=== PATIENT | female | born 1955 ===

== ENCOUNTER 2019-08-31 16:47 | Inpatient (IN) | payer BC ==
--- NOTE | 2019-08-31 17:04 | EDM.PDOC ---
ED HPI GENERAL MEDICAL PROBLEM - General Chief Complaint: Lower Extremity Injury/Pain Stated Complaint: EMS ARRIVAL Time Seen by Provider: 08/31/19 17:03 Source of Information: Reports: Patient History Limitations: Reports: No Limitations - History of Present Illness INITIAL COMMENTS - FREE TEXT/NARRATIVE: HISTORY AND PHYSICAL: History of present illness: Patient is a 64-year-old female presents to the ED via EMS for left hip injury. Patient states that she was in her garage cleaning when she turned and felt her left hip gave out on her. She states she fell to the ground but did not have any head or other injury. She has not been able to put any weight on her left leg. She states she's had 2 hip replacements on the left. Review of systems: As per history of present illness and below otherwise all systems reviewed and negative. Past medical history: As per history of present illness and as reviewed below otherwise noncontributory. Surgical history: As per history of present illness and as reviewed below otherwise noncontributory. Social history: No reported history of drug or alcohol abuse. Family history: As per history of present illness and as reviewed below otherwise noncontributory. Physical exam: General: Patient sitting comfortably in no acute distress and nontoxic appearing HEENT: Atraumatic, normocephalic, pupils reactive, negative for conjunctival pallor or scleral icterus, mucous membranes moist, throat clear, neck supple, nontender, trachea midline. No meningeal signs. Lungs: Clear to auscultation, breath sounds equal bilaterally, chest nontender. Heart: S1S2, regular, negative for clicks, rubs, or overt murmur. Abdomen: Soft, nondistended, nontender. Negative for masses or hepatosplenomegaly. Negative for costovertebral tenderness. No rigidity, rebound , guarding. Pelvis: Stable nontender. Genitourinary: Deferred. Rectal: Deferred. Extremities: Atraumatic, negative for cords or calf pain. Neurovascular unremarkable. Neuro: Awake, alert, oriented. Cranial nerves II through XII unremarkable. Cerebellum unremarkable. Motor and sensory unremarkable throughout. Exam nonfocal. Notes: Dr. Tanner to ED to reduce hip but was unsuccessful and patient will go to OR for closed reduction. See Dr. Tanner's note. Diagnostics: left hip x-ray Therapeutics: Prescriptions: Impression: Left hip dislocation Plan: Patient to OR for closed reduction with Dr. Tanner. Definitive disposition and diagnosis as appropriate pending reevaluation and review of above. Left Hip Pain Score (Numeric/FACES): 10 - Related Data Allergies Allergy/AdvReac Type Severity Reaction Status Date / Time cefdinir Allergy Hives Verified 08/31/19 17:03 Home Meds: Home Meds . [No Known Home Meds] 08/31/19 [History] Review of Systems - Review of Systems Review Of Systems: Comprehensive ROS is negative, except as noted in HPI. ED EXAM, GENERAL - Physical Exam Exam: See Below (see dictation) Course - Vital Signs Last Recorded V/S: Last Vital Signs Temp 98.8 F 08/31/19 17:00 Pulse 85 08/31/19 18:30 Resp 17 08/31/19 18:30 BP 148/65 H 08/31/19 18:30 Pulse Ox 97 08/31/19 18:30 - Orders/Labs/Meds Meds: Medications Discontinued Medications Generic Name Dose Route Start Last Admin Trade Name Monty PRN Reason Stop Dose Admin Fentanyl Confirm 08/31/19 19:05 Sublimaze Administered 08/31/19 19:06 Dose 100 mcg .ROUTE .STK-MED ONE Acetaminophen Confirm 08/31/19 19:06 Ofirmev Administered 08/31/19 19:07 Dose 100 mls @ as directed .ROUTE .STK-MED ONE Midazolam HCl Confirm 08/31/19 19:05 Versed 1 Mg/Ml Administered 08/31/19 19:06 Dose 2 mg .ROUTE .STK-MED ONE Ondansetron HCl Confirm 08/31/19 19:05 Zofran Administered 08/31/19 19:06 Dose 4 mg .ROUTE .STK-MED ONE Propofol Confirm 08/31/19 19:05 Diprivan 20 Ml Administered 08/31/19 19:06 Dose 400 mg .ROUTE .STK-MED ONE Departure - Departure Time of Disposition: 19:34 Disposition: Still A Patient 30 Condition: Good Clinical Impression: Hip dislocation, left - Discharge Information Forms: ED Department Discharge Sepsis Event Note - Evaluation Sepsis Screening Result: No Definite Risk - Focused Exam Vital Signs: Vital Signs Temp Pulse Resp BP Pulse Ox 08/31/19 18:30 85 17 148/65 H 97 08/31/19 18:00 89 16 158/89 H 97 08/31/19 17:30 80 18 154/69 H 99 08/31/19 17:00 98.8 F 87 20 156/67 H 99 Date Exam was Performed: 08/31/19 Time Exam was Performed: 19:33
--- NOTE | 2019-08-31 18:15 | CR ---
Pelvis and left hip: AP view of the pelvis was obtained as well as AP view left hip. Dislocated left hip prosthesis is seen. Prosthesis is dislocated superior to the acetabular cup. Severe joint space narrowing is seen within the right hip. Bony structures are osteopenic. No acute fracture is appreciated. Degenerative change is noted within the visualized lower lumbar spine. Impression: 1. Dislocated left hip prosthesis. 2. Other findings which are nonacute. Diagnostic code #3 This report was dictated in [place] Standard Time
[2019-08-31] MEDS ORDERED: Ondansetron 4 MG/2 ML SDV ONE (19:05)
[2019-08-31] MEDS ORDERED: fentaNYL 100 MCG/2 ML SDV ONE ×2 (19:05→19:52)
[2019-08-31] MEDS ORDERED: Propofol 200 MG/20 ML SDV ONE ×2 (19:05→19:51)
[2019-08-31] MEDS ORDERED: Midazolam 1 MG/ML 2 ML SDV ONE (19:05)
[2019-08-31] MEDS ORDERED: Sugammadex Sodium 200 MG/2 ML VIAL ONE (20:29)
[2019-08-31] MEDS ORDERED: Ketorolac 15 MG/ML SDV IVPUSH PRN (20:42)
[2019-08-31] MEDS ORDERED: HYDROmorphone 1 MG/ML Syringe IVPUSH ONE ×2 (20:48→20:58)
[2019-08-31] MEDS ORDERED: HYDROmorphone 2 MG/ML Syringe ONE (20:48)
[2019-08-31] MEDS ORDERED: hydrOXYzine Pamoate 25 MG Cap PO PRN (20:49)
--- NOTE | 2019-08-31 20:52 | PCM.PREANE ---
Preanesthetic Assessment - Procedure Proposed Procedure: Disloacted hip. Needs sedation for reduction. - Anesthesia/Transfusion/Family Hx Anesthesia History: Prior Anesthesia Without Reaction Family History of Anesthesia Reaction: No Transfusion History: No Prior Transfusion(s) Intubation History: Intubation other than for Surgery in past - Review of Systems General: No Symptoms Pulmonary: No Symptoms Cardiovascular: No Symptoms Gastrointestinal: No Symptoms Neurological: No Symptoms Other: Reports: Anxiety - Physical Assessment NPO Status Date: 08/31/19 NPO Status Time: 11:00 Vital Signs: Last Vital Signs Temp 37.1 C 08/31/19 17:00 Pulse 79 08/31/19 19:30 Resp 18 08/31/19 19:30 BP 158/86 H 08/31/19 19:30 Pulse Ox 100 08/31/19 19:30 Height: 1.7 m Weight: 68.039 kg ASA Class: 2E Mental Status: Alert & Oriented x3 Airway Class: Mallampati = 1 Dentition: Reports: Normal Dentition Thyro-Mental Finger Breadths: 3 Mouth Opening Finger Breadths: 3 ROM/Head Extension: Full Lungs: Clear to Auscultation Cardiovascular: Regular Rate - Allergies Allergies/Adverse Reactions: Allergies Allergy/AdvReac Type Severity Reaction Status Date / Time cefdinir Allergy Hives Verified 08/31/19 17:03 - Blood Blood Available: No Product(s) Available: None - Anesthesia Plan Pre-Op Medication Ordered: None - Acknowledgements Anesthesia Type Planned: MAC Alternatives and Risks of Anesthesia Discussed w Pt/Guardian: Yes Pt/Guardian Understands and Agrees with Anesthesia Plan: Yes Additional Comments: Discussed, ? answered, permit signed. Possible of GA also discussed. Accepts, wishes to proceed. PreAnesthesia Questionnaire Musculoskeletal History: Reports: None - Infectious Disease History Infectious Disease History: Reports: Chicken Pox, Measles - Past Surgical History Musculoskeletal Surgical History: Reports: Hip Replacement Other Musculoskeletal Surgeries/Procedures:: Left Hip Replacement x2 - SUBSTANCE USE Smoking Status *Q: Never Smoker Second Hand Smoke Exposure: No Recreational Drug Use History: No - HOME MEDS Home Medications: Home Meds . [No Known Home Meds] 08/31/19 [History] - CURRENT (IN HOUSE) MEDS Current Meds: Current Medications Acetaminophen (Tylenol) 650 mg PO Q6H PRN PRN Reason: Pain Famotidine (Pepcid) 40 mg PO DAILY DEEP Lactated Ringer's (Ringers, Lactated) 1,000 mls @ 100 mls/hr IV ASDIRECTED [facility] Ketorolac Tromethamine (Toradol) 15 mg IVPUSH Q6H PRN PRN Reason: Pain Stop: 09/01/19 05:00 Discontinued Medications Fentanyl (Sublimaze) Confirm Administered Dose 100 mcg .ROUTE .STK-MED ONE Stop: 08/31/19 19:06 Fentanyl (Sublimaze) Confirm Administered Dose 100 mcg .ROUTE .STK-MED ONE Stop: 08/31/19 19:53 Acetaminophen (Ofirmev) Confirm Administered Dose 100 mls @ as directed .ROUTE .STK-MED ONE Stop: 08/31/19 19:07 Midazolam HCl (Versed 1 Mg/Ml) Confirm Administered Dose 2 mg .ROUTE .STK-MED ONE Stop: 08/31/19 19:06 Ondansetron HCl (Zofran) Confirm Administered Dose 4 mg .ROUTE .STK-MED ONE Stop: 08/31/19 19:06 Propofol (Diprivan 20 Ml) Confirm Administered Dose 400 mg .ROUTE .STK-MED ONE Stop: 08/31/19 19:06 Propofol (Diprivan 20 Ml) Confirm Administered Dose 200 mg .ROUTE .STK-MED ONE Stop: 08/31/19 19:52 Sugammadex Sodium (Bridion) Confirm Administered Dose 200 mg .ROUTE .STK-MED ONE Stop: 08/31/19 20:30
--- NOTE | 2019-08-31 21:01 | PCM.POSTAN ---
POST ANESTHESIA ASSESSMENT - MENTAL STATUS Mental Status: Alert - VITAL SIGNS Vital Signs: Last Vital Signs Temp 36.6 C 08/31/19 20:38 Pulse 83 08/31/19 20:53 Resp 10 L 08/31/19 20:53 BP 145/81 H 08/31/19 20:53 Pulse Ox 97 08/31/19 20:53 - RESPIRATORY Respiratory Status: Respiratory Rate WNL - CARDIOVASCULAR CV Status: Pulse Rate WNL - GASTROINTESTINAL GI Status: No Symptoms - PAIN Pain Score: 2 (Some soreness. Received Dilaudid 1mg x2. Very helpful) - POST OP HYDRATION Hydration Status: Adequate & Stable (Doing well. Ready for discharge to floor.)
[2019-08-31 21:29] LABS: BLOOD UREA NITROGEN,BUN 11 mg/dL (7.0-18.0); CARBON DIOXIDE,CO2 25.1 mmol/L (21.0-32.0); CHLORIDE,CL 105 mmol/L (98-107); GLUCOSE RANDOM 99 mg/dL (74-106); POTASSIUM,K 4.6 mmol/L (3.5-5.1); SODIUM,NA 140 mmol/L (136-145)
[2019-08-31] MEDS: Lactated Ringers 1,000 ML IV SCH (21:29)
[2019-08-31] MEDS: Famotidine 20 MG Tab PO SCH (21:50)
[2019-08-31] MEDS: Ondansetron 4 MG/2 ML SDV IVPUSH PRN (23:06)
--- NOTE | 2019-09-01 06:59 | PCM48HPAN ---
Post Anesthesia Note - EVALUATION WITHIN 48HRS OF ANESTHETIC Vital Signs in Normal Range: Yes Patient Participated in Evaluation: Yes Respiratory Function Stable: Yes Airway Patent: Yes Cardiovascular Function Stable: Yes Hydration Status Stable: Yes Pain Control Satisfactory: Yes (Some soreness but doing well.) Vital Signs: Last Vital Signs Temp 36.2 C 09/01/19 05:02 Pulse 100 09/01/19 05:02 Resp 16 09/01/19 05:02 BP 131/72 09/01/19 05:02 Pulse Ox 95 09/01/19 05:02 - COMMENTS/OBSERVATIONS Free Text/Narrative:: Doing well. Awaiting next set.
[2019-09-01] MEDS: Lactated Ringers 1,000 ML IV SCH ×2 (08:10→18:09)
[2019-09-01] MEDS: Famotidine 20 MG Tab PO SCH (08:11)
[2019-09-01] MEDS: Ondansetron 4 MG/2 ML SDV IVPUSH PRN ×2 (08:11→18:08)
[2019-09-01] MEDS ORDERED: Rocuronium 100 MG/10 ML Syringe ONE (10:47)
[2019-09-01] MEDS ORDERED: Sugammadex Sodium 200 MG/2 ML VIAL ONE (10:48)
--- NOTE | 2019-09-01 13:16 | PCM.PREANE ---
Preanesthetic Assessment - Anesthesia/Transfusion/Family Hx Anesthesia History: Prior Anesthesia Without Reaction Family History of Anesthesia Reaction: No Transfusion History: Prior Transfusion Without Reaction Intubation History: Intubation other than for Surgery in past - Review of Systems General: No Symptoms Pulmonary: No Symptoms Cardiovascular: No Symptoms Gastrointestinal: No Symptoms Neurological: No Symptoms Other: Reports: None, Anxiety - Physical Assessment NPO Status Date: 08/31/19 NPO Status Time: 11:00 Vital Signs: Last Vital Signs Temp 98 F 09/01/19 07:55 Pulse 86 09/01/19 07:55 Resp 16 09/01/19 07:55 BP 133/78 09/01/19 07:55 Pulse Ox 96 09/01/19 07:55 Height: 5 ft 7 in Weight: 68.039 kg ASA Class: 1 Mental Status: Alert & Oriented x3 Dentition: Reports: Normal Dentition ROM/Head Extension: Full Lungs: Clear to Auscultation, Normal Respiratory Effort Cardiovascular: Regular Rate, Regular Rhythm - Lab Values: Laboratory Last Values Hgb 13.5 g/dL (12.0-16.0) 08/31/19 21:10 Hct 40.3 % (36.0-46.0) 08/31/19 21:10 Sodium 140 mmol/L (136-145) 08/31/19 21:10 Potassium 4.6 mmol/L (3.5-5.1) 08/31/19 21:10 Chloride 105 mmol/L (98-107) 08/31/19 21:10 Carbon Dioxide 25.1 mmol/L (21.0-32.0) 08/31/19 21:10 BUN 11 mg/dL (7.0-18.0) 08/31/19 21:10 Creatinine 0.7 mg/dL (0.6-1.0) 08/31/19 21:10 Est Cr Clr Drug Dosing 79.99 mL/min 08/31/19 21:10 Estimated GFR (MDRD) > 60.0 ml/min 08/31/19 21:10 Glucose 99 mg/dL (74-106) 08/31/19 21:10 Calcium 9.0 mg/dL (8.5-10.1) 08/31/19 21:10 Blood Type O POSITIVE 08/31/19 21:10 Antibody Screen NEGATIVE 08/31/19 21:10 - Allergies Allergies/Adverse Reactions: Allergies Allergy/AdvReac Type Severity Reaction Status Date / Time cefdinir Allergy Hives Verified 09/01/19 02:37 - Blood Blood Available: No Product(s) Available: None - Anesthesia Plan Pre-Op Medication Ordered: None - Acknowledgements Anesthesia Type Planned: General Anesthesia Pt an Appropriate Candidate for the Planned Anesthesia: Yes Alternatives and Risks of Anesthesia Discussed w Pt/Guardian: Yes Pt/Guardian Understands and Agrees with Anesthesia Plan: Yes Additional Comments: Scheduled for revision SEBASTIAN, unsuccessful attempts at reduction of hip dislocation last night. NPO PreAnesthesia Questionnaire Musculoskeletal History: Reports: None - Infectious Disease History Infectious Disease History: Reports: Chicken Pox, Measles - Past Surgical History Musculoskeletal Surgical History: Reports: Hip Replacement Other Musculoskeletal Surgeries/Procedures:: Left Hip Replacement x2 - SUBSTANCE USE Smoking Status *Q: Never Smoker Second Hand Smoke Exposure: No Recreational Drug Use History: No - HOME MEDS Home Medications: Home Meds . [No Known Home Meds] 08/31/19 [History] - CURRENT (IN HOUSE) MEDS Current Meds: Current Medications Acetaminophen (Tylenol) 650 mg PO Q6H PRN PRN Reason: Pain Famotidine (Pepcid) 40 mg PO DAILY [facility] Last Admin: 09/01/19 08:11 Dose: 40 mg Hydroxyzine Pamoate (Vistaril) 25 mg PO Q6H PRN PRN Reason: pain Lactated Ringer's (Ringers, Lactated) 1,000 mls @ 100 mls/hr IV ASDIRECTED [facility] Last Admin: 09/01/19 08:10 Dose: 100 mls/hr Ondansetron HCl (Zofran) 4 mg IVPUSH Q4H PRN PRN Reason: Nausea/Vomiting Last Admin: 09/01/19 08:11 Dose: 4 mg Discontinued Medications Fentanyl (Sublimaze) Confirm Administered Dose 100 mcg .ROUTE .STK-MED ONE Stop: 08/31/19 19:06 Fentanyl (Sublimaze) Confirm Administered Dose 100 mcg .ROUTE .STK-MED ONE Stop: 08/31/19 19:53 Hydromorphone HCl (Dilaudid) 1 mg IVPUSH ONETIME ONE Stop: 08/31/19 20:49 Last Admin: 08/31/19 21:00 Dose: 1 mg Hydromorphone HCl (Dilaudid) Confirm Administered Dose 2 mg .ROUTE .STK-MED ONE Stop: 08/31/19 20:49 Last Admin: 08/31/19 21:42 Dose: Not Given Hydromorphone HCl (Dilaudid) 1 mg IVPUSH ONETIME ONE Stop: 08/31/19 20:59 Last Admin: 08/31/19 20:49 Dose: 1 mg Acetaminophen (Ofirmev) Confirm Administered Dose 100 mls @ as directed .ROUTE .STK-MED ONE Stop: 08/31/19 19:07 Ketorolac Tromethamine (Toradol) 15 mg IVPUSH Q6H PRN PRN Reason: Pain Stop: 09/01/19 05:00 Midazolam HCl (Versed 1 Mg/Ml) Confirm Administered Dose 2 mg .ROUTE .STK-MED ONE Stop: 08/31/19 19:06 Ondansetron HCl (Zofran) Confirm Administered Dose 4 mg .ROUTE .STK-MED ONE Stop: 08/31/19 19:06 Propofol (Diprivan 20 Ml) Confirm Administered Dose 400 mg .ROUTE .STK-MED ONE Stop: 08/31/19 19:06 Propofol (Diprivan 20 Ml) Confirm Administered Dose 200 mg .ROUTE .STK-MED ONE Stop: 08/31/19 19:52 Rocuronium [place] (Zemuron) Confirm Administered Dose 100 mg .ROUTE .STK-MED ONE Stop: 09/01/19 10:48 Sugammadex Sodium (Bridion) Confirm Administered Dose 200 mg .ROUTE .STK-MED ONE Stop: 08/31/19 20:30 Sugammadex Sodium (Bridion) Confirm Administered Dose 200 mg .ROUTE .STK-MED ONE Stop: 09/01/19 10:49
--- NOTE | 2019-09-01 14:44 | CR ---
Chest: Portable AP view of the chest was obtained. Comparison: No prior chest x-ray. Heart size and mediastinum are within normal limits for portable technique. Lungs are clear with no acute parenchymal change. Slight scoliosis is noted within the spine. Impression: 1. Slight scoliosis. 2. Nothing acute is seen on portable chest x-ray. Diagnostic code #2 This report was dictated in [place] Standard Time
--- NOTE | 2019-09-01 14:46 | CR ---
Left hip: AP view of the left hip was obtained. Comparison: Prior left hip study of 08/31/19. Dislocated left hip prosthesis again noted. Slight degenerative change is noted within the spine. Degenerative change is partially is seen within the right hip. One screw within the acetabular cup shows evidence of fracturing which is hidden on prior study from the femoral head. Impression: 1. Dislocated left hip prosthesis. Fracture of one screw of the acetabular cup. 2. Partially visualized degenerative change. Diagnostic code #3 This report was dictated in [place] Standard Time
--- NOTE | 2019-09-01 14:48 | PCM.OPNOTE ---
- General Post-Op/Procedure Note Date of Surgery/Procedure: 08/31/19 Operative Procedure(s): attempted closed reduction left hip arthroplasty Pre Op Diagnosis: left hip arthroplasty posterior dislocation Post-Op Diagnosis: Same Anesthesia Technique: General LMA Primary Surgeon: Vahid Tanner Complications: unable to relocate Condition: Good Free Text/Narrative:: Intake & Output 08/31/19 09/01/19 09/01/19 22:59 06:59 14:59 Intake Total 1000 1409 Output Total 700 400 Balance 300 1009
--- NOTE | 2019-09-01 14:49 | PCM.OPNOTE ---
- General Post-Op/Procedure Note Date of Surgery/Procedure: 08/31/19 Operative Procedure(s): attempted closed reduction left hip arthroplasty Pre Op Diagnosis: left hip arthroplasty posterior dislocation Post-Op Diagnosis: Same Anesthesia Technique: MAC, Moderate Sedation Primary Surgeon: Vahid Tanner Anesthesia Provider: Kyree Marshall Complications: unable to relocate Condition: Good Free Text/Narrative:: Intake & Output 08/31/19 09/01/19 09/01/19 22:59 06:59 14:59 Intake Total 1000 1409 Output Total 700 400 Balance 300 1009
--- NOTE | 2019-09-01 14:52 | PCM.CONS ---
H&P History of Present Illness - General Date of Service: 08/31/19 Admit Problem/Dx: Admission Diagnosis/Problem Admission Diagnosis/Problem Hip joint painful on movement Source of Information: Patient, Family, Provider, RN History Limitations: Reports: No Limitations - History of Present Illness Onset of Symptoms: Reports: Today, Sudden Duration of Symptoms: Reports: Hour(s): Location: Reports: Lower Extremity, Left Quality: Reports: Ache, Burning, Dull, Pressure Severity: Moderate Improves with: Reports: Immobilization Worsens with: Reports: Movement Associated Symptoms: Reports: No Other Symptoms Left Hip Pain Score (Numeric/FACES): 10 - Related Data Allergies/Adverse Reactions: Allergies Allergy/AdvReac Type Severity Reaction Status Date / Time cefdinir Allergy Hives Verified 09/01/19 02:37 Home Medications: Home Meds . [No Known Home Meds] 08/31/19 [History] Past Medical History Musculoskeletal History: Reports: None - Infectious Disease History Infectious Disease History: Reports: Chicken Pox, Measles - Past Surgical History Musculoskeletal Surgical History: Reports: Hip Replacement Other Musculoskeletal Surgeries/Procedures:: Left Hip Replacement x2 Social & Family History - Family History Family Medical History: Noncontributory - Tobacco Use Smoking Status *Q: Never Smoker Second Hand Smoke Exposure: No - Caffeine Use Caffeine Use: Reports: None - Recreational Drug Use Recreational Drug Use: No H&P Review of Systems - Review of Systems: Review Of Systems: See Below General: Reports: No Symptoms HEENT: Reports: No Symptoms Pulmonary: Reports: No Symptoms Cardiovascular: Reports: No Symptoms Gastrointestinal: Reports: No Symptoms Genitourinary: Reports: No Symptoms Musculoskeletal: Reports: Leg Pain, Joint Pain, Joint Swelling Skin: Reports: No Symptoms Psychiatric: Reports: No Symptoms Neurological: Reports: No Symptoms Hematologic/Lymphatic: Reports: No Symptoms Immunologic: Reports: No Symptoms Exam - Exam Exam: See Below - Vital Signs Vital Signs: Last Vital Signs Temp 98.3 C H 09/01/19 13:00 Pulse 83 09/01/19 13:00 Resp 16 09/01/19 13:00 BP 174/81 H 09/01/19 13:00 Pulse Ox 96 09/01/19 13:00 Weight: 68.039 kg - Exam General: Alert, Oriented, Cooperative, Moderate Distress HEENT: EOMI, Hearing Intact, Mucosa Moist & [place], Pupils Equal, Pupils Reactive Neck: Supple, Trachea Midline Lungs: Normal Respiratory Effort GI/Abdominal Exam: No Distention Peripheral Pulses: 2+: Dorsalis Pedis (L), Dorsalis Pedis (R) Skin: Warm, Dry, Intact Neurological: Cranial Nerves Intact, Reflexes Equal Bilateral Neuro Extensive - Mental Status: Alert, Oriented x3, Normal Mood/Affect, Normal Cognition, Memory Intact Psychiatric: Alert, Normal Affect, Normal Mood - Patient Data Lab Results Last 24 hrs: Laboratory Results - last 24 hr 08/31/19 08/31/19 08/31/19 Range/Units 21:10 21:10 21:10 Hgb 13.5 (12.0-16.0) g/dL Hct 40.3 (36.0-46.0) % Sodium 140 (136-145) mmol/L Potassium 4.6 (3.5-5.1) mmol/L Chloride 105 (98-107) mmol/L Carbon Dioxide 25.1 (21.0-32.0) mmol/L BUN 11 (7.0-18.0) mg/dL Creatinine 0.7 (0.6-1.0) mg/dL Est Cr Clr Drug Dosing 79.99 mL/min Estimated GFR (MDRD) > 60.0 ml/min Glucose 99 (74-106) mg/dL Calcium 9.0 (8.5-10.1) mg/dL Blood Type O POSITIVE Antibody Screen NEGATIVE Result Diagrams: 08/31/19 21:10 08/31/19 21:10 Sepsis Event Note - Evaluation Sepsis Screening Result: No Definite Risk - Focused Exam Vital Signs: Vital Signs Temp Pulse Resp BP Pulse Ox 09/01/19 13:00 98.3 C H 83 16 174/81 H 96 09/01/19 07:55 36.6 C 86 16 133/78 96 09/01/19 05:02 36.2 C 100 16 131/72 95 Date Exam was Performed: 09/01/19 Time Exam was Performed: 14:49 Consult PN Assessment/Plan POD#: 0 (1) Hip dislocation, left SNOMED Code(s): 486577208 Code(s): S73.005A - UNSPECIFIED DISLOCATION OF LEFT HIP, INITIAL ENCOUNTER Current Visit: Yes Problem List Initiated/Reviewed/Updated: Yes My Orders Last 24 Hours: My Active Orders 08/31/19 20:42 Neurovascular Check [RC] Q4HR Acetaminophen [Tylenol] 650 mg PO Q6H PRN Code Status [Resuscitation Status] Routine 08/31/19 20:43 Bedrest [RC] ASDIRECTED RT Incentive Spirometry [RC] Q1HWA Ice Therapy [OM.PC] Routine Sequential Compression Device [OM.PC] Routine 08/31/19 20:44 Antiembolic Devices [RC] PER UNIT ROUTINE Cooling Warming Measures [RC] ASDIRECTED 08/31/19 20:45 EKG 12 Lead [EKG Documentation Completion] [RC] ROUTINE Famotidine [Pepcid] 40 mg PO DAILY Lactated Ringers [Ringers, Lactated] 1,000 ml IV ASDIRECTED 08/31/19 20:49 hydrOXYzine pamoate [Vistaril] 25 mg PO Q6H PRN 08/31/19 20:57 Admission Status [Patient Status] [ADT] Routine 08/31/19 22:57 Ondansetron [Zofran] 4 mg IVPUSH Q4H PRN 08/31/19 Dinner Regular Diet [DIET] 09/01/19 20:45 HEMOGLOBIN/HEMATOCRIT,HH [HEME] DAILY 09/01/19 Breakfast NPO [Nothing Per Oral Diet] [DIET] Plan: 64 yo female s/p turning in garage felt hip dislocate. 2nd revision in 2007. no hx of dislocation. neuro intact. attempted to reduce in ER but unable to. attempted to reduce in OR but unable to.
[2019-09-01] MEDS ORDERED: Clindamycin Phosphate in D5W 900 MG in Premix Bag 1 BAG IV SCH ×2 (16:00)
[2019-09-01] MEDS: traMADol 50 MG Tab PO PRN (18:08)
[2019-09-01] MEDS ORDERED: HYDROmorphone 1 MG/ML Syringe IVPUSH ONE (19:27)
[2019-09-01] MEDS ORDERED: Diazepam 5 MG Tab PO ONE (19:28)
[2019-09-02] MEDS: traMADol 50 MG Tab PO PRN ×2 (00:05→04:18)
[2019-09-02] MEDS: Lactated Ringers 1,000 ML IV SCH ×2 (04:14→15:04)
[2019-09-02] MEDS: diazePAM 5 MG/ML MDV IVPUSH PRN ×2 (09:25→14:03)
[2019-09-02] MEDS: Ondansetron 4 MG/2 ML SDV IVPUSH PRN (09:26)
[2019-09-02] MEDS: Famotidine 20 MG Tab PO SCH (09:38)
[2019-09-02] MEDS ORDERED: Midazolam 1 MG/ML 2 ML SDV ONE (13:44)
[2019-09-02] MEDS ORDERED: Propofol 200 MG/20 ML SDV ONE (13:44)
[2019-09-02] MEDS ORDERED: Rocuronium 100 MG/10 ML Syringe ONE (13:44)
[2019-09-02] MEDS ORDERED: Lidocaine 2% 5 ML SDV ONE (13:44)
[2019-09-02] MEDS ORDERED: fentaNYL 250 MCG/5 ML SDV ONE (13:45)
[2019-09-02] MEDS ORDERED: Sugammadex Sodium 200 MG/2 ML VIAL ONE (13:56)
[2019-09-02] MEDS ORDERED: Clindamycin Phosphate in D5W 900 MG in Premix Bag 1 BAG IV SCH ×2 (14:00)
[2019-09-02] MEDS ORDERED: Phenylephrine/Normal Saline 100 MCG/ML 10 ML Syringe ONE (16:48)
[2019-09-02] MEDS ORDERED: Bupivacaine 0.5%/EPINEPHrine 1:200,000 10 ML SDV ONE (17:00)
[2019-09-02] MEDS ORDERED: Vancomycin 1 GM SDV ONE ×2 (17:01→17:08)
[2019-09-02] MEDS ORDERED: Ondansetron 4 MG/2 ML SDV ONE (17:25)
[2019-09-02] MEDS ORDERED: Dexamethasone 4 MG/ML 5 ML MDV ONE (17:25)
[2019-09-02] MEDS ORDERED: 50% Dextrose in Water 50 ML Syringe IVPUSH PRN (17:50)
[2019-09-02] MEDS ORDERED: EPINEPHrine 1:10,000 1 MG/10 ML Syringe IVPUSH PRN (17:50)
[2019-09-02] MEDS ORDERED: Albuterol 0.083% 2.5 MG/3 ML Neb Soln NEB PRN (17:50)
[2019-09-02] MEDS ORDERED: Naloxone 0.4 MG/ML Syringe IVPUSH PRN (17:50)
[2019-09-02] MEDS ORDERED: Atropine 0.1 MG/ML 10 ML Syringe IVPUSH PRN ×2 (17:50)
[2019-09-02] MEDS ORDERED: fentaNYL 100 MCG/2 ML SDV IVPUSH PRN (17:50)
[2019-09-02] MEDS ORDERED: HYDROmorphone 2 MG/ML Syringe IVPUSH PRN (18:12)
--- NOTE | 2019-09-02 18:21 | PCM.OPNOTE ---
- General Post-Op/Procedure Note Date of Surgery/Procedure: 09/02/19 Operative Procedure(s): open relocation left total hip arthroplasty Pre Op Diagnosis: left closed dislocated total hip arthroplasty Post-Op Diagnosis: Same Anesthesia Technique: General ET Tube Primary Surgeon: Vahid Tanner Line Welder: Blanka Miranda EBL in mLs: 75 Complications: None Condition: Good Free Text/Narrative:: Intake & Output 09/02/19 09/02/19 09/02/19 06:59 14:59 22:59 Intake Total 1342 Output Total 1750 Balance -408
[2019-09-02] MEDS ORDERED: Meperidine PF 25 MG/ML Syringe IVPUSH ONE (18:55)
--- NOTE | 2019-09-02 19:06 | CR ---
Left hip: Single AP view of the left hip was obtained. Comparison: Prior left hip study of 09/01/19. Previous dislocation has been reduced. Components are aligned. Skin augustus are present. Soft tissue air is noted from the surgical procedure. Degenerative change is partially seen within the right hip. Impression: 1. Previous hip dislocation has been reduced. 2. Surgical change as noted above which is incidental. 3. Degenerative change within the right hip. Diagnostic code #2 This report was dictated in [place] Standard Time
--- NOTE | 2019-09-02 19:10 | PCM.POSTAN ---
POST ANESTHESIA ASSESSMENT - MENTAL STATUS Mental Status: Alert, Oriented - VITAL SIGNS Vital Signs: Last Vital Signs Temp 37.1 C 09/02/19 12:00 Pulse 99 09/02/19 18:59 Resp 15 09/02/19 18:59 BP 136/71 09/02/19 18:59 Pulse Ox 99 09/02/19 18:59 - RESPIRATORY Respiratory Status: Respiratory Rate WNL, Airway Patent, O2 Saturation Stable - CARDIOVASCULAR CV Status: Pulse Rate WNL, Blood Pressure Stable - GASTROINTESTINAL GI Status: No Symptoms - PAIN Pain Score: 0 - POST OP HYDRATION Hydration Status: Adequate & Stable (Doing well. Ready for discharge to floor.)
[2019-09-02] MEDS: Acetaminophen/oxyCODONE 325-10 MG Tab PO PRN (20:07)
--- NOTE | 2019-09-03 00:46 | OR ---
SURGEON: Vahid Tanner DATE OF PROCEDURE: 09/02/2019 PREOPERATIVE DIAGNOSES: Closed left hip total arthroplasty, posterior dislocation. POSTOPERATIVE DIAGNOSES: Closed left hip total arthroplasty, posterior dislocation. PROCEDURE: Open left total hip arthroplasty relocation. PRIMARY SURGEON: Vahid Tanner DO COMPUTER COMPOSITOR: IMAN Cárdenas ROLE OF COMPUTER COMPOSITOR: Nurse practitioner, IMAN Cárdenas, played an essential role in assisting in this case, helping to position the patient, retract structures as needed, as well as suturing and cutting sutures as indicated. Her presence improved patient's safety and decreased operative time. ANESTHESIA: General endotracheal intubation. FLUID: Lactated Ringer solution. ESTIMATED BLOOD LOSS: 75 mL. COMPLICATION: None. SPECIMEN: None. DISCHARGE DISPOSITION: Stable to PACU. HISTORY AND INDICATION FOR THE PROCEDURE: The patient was seen preoperatively in the ER in the hospital floor. We had tried to reduce the implant both in the ER and the OR with conscious sedation and then conscious sedation with the patient paralyzed both failed. We waited 2 days to perform the procedure in order to get components and in case any of these were loose. Risks and goals of the procedure explained to the patient. Informed consent was obtained. DETAILS OF PROCEDURE: The patient was seen preoperatively in the hospital floor. The operative site was marked. She was brought to the operative suite by Anesthesia staff, where general anesthesia was administered. The patient was paralyzed. I again tried to relocate the hip, but was unable to. We then positioned the patient in the right lateral recumbent position on a pegboard. An axillary roll was placed. All extremities were found to be well padded. Her left lower extremity was then prepped and draped in a sterile manner. Time-out was called after identifying the correct patient, the correct procedure, the correct site, and that antibiotics had been given within appropriate time. An incision was made about 5 cm proximal to the greater trochanter and then carried distally about 15 cm. Bleeding was controlled with Bovie electrocautery. This was carried down to the deep fascia down to the IT band. I used Gelpis for retraction. At this point, I incised the IT band with a knife and then used a Charnley for retraction. I then went through the gluteus medius and gluteus minimus and capsule. However, this was very far lateral on the femur because of the dislocation, which had internally rotated the femur. After that accomplished, I was then able to hook the femur. We tried relocating it couple of times. However, I was then able to relocate it. I then incised through part of the inferior acetabular labrum and then incised through part of the anterior and superior capsules and removed part of the capsule superiorly for the relocation. Then, using a bone hook and a pusher with traction, external rotation, and then internal rotation, I was able to relocate the hip. We then copiously irrigated with Betadine infused irrigation and then closed the capsule and gluteus minimus and gluteus coretta with #5 Ethibond as tightly as possible. I did take some drill holes through the greater trochanter in order to secure the Ethibond. I did apply a small amount of vancomycin powder in the joint. We then copiously irrigated with saline again including pulse lavage and then closed the IT band with 2 [id number] #5 Ethibond sutures followed by a #1 Stratafix in a running manner as watertight as possible. We then copiously irrigated with saline again, injected our local anesthetic, and then my assist closed subcutaneously with #1 Stratafix followed by skin augustus followed by Betadine-soaked Adaptic, fluffs, and a Medipore tape. The patient was then taken down from the pegboard into a supine position, placed into a knee immobilizer, and then transferred to her hospital bed in stable condition. She was then transferred to the PACU in stable condition. [id number] / MODL /[id number]
[2019-09-03] MEDS: Lactated Ringers 1,000 ML IV SCH (01:18)
[2019-09-03] MEDS: traMADol 50 MG Tab PO PRN (01:18)
--- NOTE | 2019-09-03 07:50 | PCM48HPAN ---
Post Anesthesia Note - EVALUATION WITHIN 48HRS OF ANESTHETIC Vital Signs in Normal Range: Yes Patient Participated in Evaluation: Yes Respiratory Function Stable: Yes Airway Patent: Yes Cardiovascular Function Stable: Yes Hydration Status Stable: Yes Pain Control Satisfactory: Yes Nausea and Vomiting Control Satisfactory: Yes Mental Status Recovered: Yes Vital Signs: Last Vital Signs Temp 36.4 C 09/03/19 03:28 Pulse 93 09/03/19 03:28 Resp 17 09/03/19 03:28 BP 121/62 09/03/19 03:28 Pulse Ox 97 09/03/19 03:28
[2019-09-03] MEDS: Famotidine 20 MG Tab PO SCH (08:43)
[2019-09-03] MEDS: Aspirin 325 MG Tab.EC PO SCH (08:43)
[2019-09-03] MEDS: Clindamycin Phosphate in D5W 300 MG in Premix Bag 1 BAG IV SCH ×4 (10:29→19:15)
[2019-09-03] MEDS: Acetaminophen/oxyCODONE 325-10 MG Tab PO PRN ×2 (12:39→19:15)
[2019-09-03] MEDS ORDERED: Sodium Chloride 0.9% 2.5 ML Syringe FLUSH PRN (14:41)
[2019-09-03] MEDS ORDERED: Sodium Chloride 0.9% 10 ML Syringe FLUSH PRN (14:41)
[2019-09-04] MEDS: Clindamycin Phosphate in D5W 300 MG in Premix Bag 1 BAG IV SCH ×6 (03:14→18:30)
[2019-09-04] MEDS: Acetaminophen 325 MG Tab PO PRN ×2 (03:56→23:15)
--- NOTE | 2019-09-04 08:54 | PCM.PN ---
- General Info Date of Service: 09/04/19 Admission Dx/Problem (Free Text): Admission Diagnosis/Problem Admission Diagnosis/Problem Hip joint painful on movement Functional Status: Reports: Pain Controlled, Tolerating Diet, Ambulating, Urinating, Incentive Spirometry - Review of Systems General: Reports: No Symptoms HEENT: Reports: No Symptoms Pulmonary: Reports: No Symptoms Cardiovascular: Reports: No Symptoms Gastrointestinal: Reports: No Symptoms Genitourinary: Reports: No Symptoms Musculoskeletal: Reports: Leg Pain, Joint Pain, Joint Swelling Skin: Reports: No Symptoms Neurological: Reports: No Symptoms Psychiatric: Reports: No Symptoms - Patient Data Vitals - Most Recent: Last Vital Signs Temp 36.5 C 09/04/19 03:10 Pulse 96 09/04/19 03:10 Resp 18 09/04/19 03:10 BP 133/58 L 09/04/19 03:10 Pulse Ox 96 09/04/19 03:10 Weight - Most Recent: 68.039 kg I&O - Last 24 Hours: Intake & Output 09/03/19 09/04/19 09/04/19 22:59 06:59 14:59 Intake Total 2200 1100 Output Total 2000 2500 Balance 200 -1400 Med Orders - Current: Current Medications Acetaminophen (Tylenol) 650 mg PO Q6H PRN PRN Reason: Pain Last Admin: 09/04/19 03:56 Dose: 650 mg Albuterol (Proventil Neb Soln) 2.5 mg NEB ONETIME PRN PRN Reason: Wheezing Aspirin (Ecotrin) 325 mg PO DAILY [facility] Last Admin: 09/03/19 08:43 Dose: 325 mg Atropine Sulfate (Atropine 0.1 Mg/Ml) 0.5 mg IVPUSH ASDIRECTED PRN PRN Reason: Hypo-perfusion Atropine Sulfate (Atropine 0.1 Mg/Ml) 1 mg IVPUSH ASDIRECTED PRN PRN Reason: Hypo-Perfusion Dextrose/Water (Dextrose 50% In Water) 50 ml IVPUSH ASDIRECTED PRN PRN Reason: Hypoglycemia Diazepam (Valium) 2 mg IVPUSH Q4H PRN PRN Reason: Anxiety Last Admin: 09/02/19 14:03 Dose: 2 mg Epinephrine HCl (Epinephrine 1:10,000) 1 mg IVPUSH ASDIRECTED PRN PRN Reason: ACLS Guidelines Famotidine (Pepcid) 40 mg PO DAILY [facility] Last Admin: 09/03/19 08:43 Dose: 40 mg Fentanyl (Sublimaze) 50 mcg IVPUSH Q5M PRN PRN Reason: Pain Hydromorphone HCl (Dilaudid) 2 mg IVPUSH Q2H PRN PRN Reason: Pain Last Admin: 09/02/19 20:06 Dose: 2 mg Hydroxyzine Pamoate (Vistaril) 25 mg PO Q6H PRN PRN Reason: pain Clindamycin Phosphate 900 mg/ (Premix) 50 mls @ 100 mls/hr IV ONCALL DEEP Clindamycin Phosphate 900 mg/ (Premix) 50 mls @ 100 mls/hr IV ONCALL DEEP Clindamycin Phosphate 300 mg/ (Premix) 50 mls @ 96.154 mls/hr IV Q8H [facility] Last Admin: 09/04/19 03:14 Dose: 96.154 mls/hr Naloxone HCl (Narcan) 0.1 mg IVPUSH ASDIRECTED PRN PRN Reason: Respiratory Depression Ondansetron HCl (Zofran) 4 mg IVPUSH Q4H PRN PRN Reason: Nausea/Vomiting Last Admin: 09/02/19 09:26 Dose: 4 mg Oxycodone/Acetaminophen (Percocet 325-10 Mg) 1 tab PO Q4H PRN PRN Reason: Pain Last Admin: 09/03/19 19:15 Dose: 1 tab Sodium Chloride (Saline Flush) 10 ml FLUSH ASDIRECTED PRN PRN Reason: Keep Vein Open Sodium Chloride (Saline Flush) 2.5 ml FLUSH ASDIRECTED PRN PRN Reason: Keep Vein Open Tramadol HCl (Ultram) 50 mg PO Q4H PRN PRN Reason: Pain Last Admin: 09/03/19 01:18 Dose: 50 mg Discontinued Medications Bupivacaine HCl/Epinephrine Bitart (Marcaine 0.5%/Epinephrine 1:200,000) Confirm Administered Dose 20 ml .ROUTE .STK-MED ONE Stop: 09/02/19 17:01 Dexamethasone (Dexamethasone) Confirm Administered Dose 20 mg .ROUTE .STK-MED ONE Stop: 09/02/19 17:26 Diazepam (Valium.) 5 mg PO ONETIME ONE Stop: 09/01/19 19:29 Last Admin: 09/01/19 19:54 Dose: 5 mg Fentanyl (Sublimaze) Confirm Administered Dose 100 mcg .ROUTE .STK-MED ONE Stop: 08/31/19 19:06 Fentanyl (Sublimaze) Confirm Administered Dose 100 mcg .ROUTE .STK-MED ONE Stop: 08/31/19 19:53 Fentanyl (Sublimaze) Confirm Administered Dose 250 mcg .ROUTE .STK-MED ONE Stop: 09/02/19 13:46 Hydromorphone HCl (Dilaudid) 1 mg IVPUSH ONETIME ONE Stop: 08/31/19 20:49 Last Admin: 08/31/19 21:00 Dose: 1 mg Hydromorphone HCl (Dilaudid) Confirm Administered Dose 2 mg .ROUTE .STK-MED ONE Stop: 08/31/19 20:49 Last Admin: 08/31/19 21:42 Dose: Not Given Hydromorphone HCl (Dilaudid) 1 mg IVPUSH ONETIME ONE Stop: 08/31/19 20:59 Last Admin: 08/31/19 20:49 Dose: 1 mg Hydromorphone HCl (Dilaudid) 1 mg IVPUSH ONETIME ONE Stop: 09/01/19 19:28 Last Admin: 09/01/19 19:54 Dose: 1 mg Acetaminophen (Ofirmev) Confirm Administered Dose 100 mls @ as directed .ROUTE .STK-MED ONE Stop: 08/31/19 19:07 Lactated Ringer's (Ringers, Lactated) 1,000 mls @ 100 mls/hr IV ASDIRECTED [facility] Last Admin: 09/03/19 01:18 Dose: 100 mls/hr Acetaminophen (Ofirmev) Confirm Administered Dose 100 mls @ as directed .ROUTE .STK-MED ONE Stop: 09/02/19 13:57 Clindamycin Phosphate 300 mg/ (Sodium Chloride) 52 mls @ 100 mls/hr IV Q8H [facility] Last Admin: 09/03/19 10:22 Dose: Not Given Ketorolac Tromethamine (Toradol) 15 mg IVPUSH Q6H PRN PRN Reason: Pain Stop: 09/01/19 05:00 Lidocaine (Xylocaine-Mpf 2%) Confirm Administered Dose 5 ml .ROUTE .STK-MED ONE Stop: 09/02/19 13:45 Meperidine HCl (Demerol) 25 mg IVPUSH ONETIME ONE Stop: 09/02/19 18:56 Last Admin: 09/02/19 19:06 Dose: 25 mg Midazolam HCl (Versed 1 Mg/Ml) Confirm Administered Dose 2 mg .ROUTE .STK-MED ONE Stop: 08/31/19 19:06 Midazolam HCl (Versed 1 Mg/Ml) Confirm Administered Dose 2 mg .ROUTE .STK-MED ONE Stop: 09/02/19 13:45 Ondansetron HCl (Zofran) Confirm Administered Dose 4 mg .ROUTE .STK-MED ONE Stop: 08/31/19 19:06 Ondansetron HCl (Zofran) Confirm Administered Dose 4 mg .ROUTE .STK-MED ONE Stop: 09/02/19 17:26 Phenylephrine HCl (Phenylephrine In Ns 100 Mcg/Ml) Confirm Administered Dose 1 mg .ROUTE .STK-MED ONE Stop: 09/02/19 16:49 Propofol (Diprivan 20 Ml) Confirm Administered Dose 400 mg .ROUTE .STK-MED ONE Stop: 08/31/19 19:06 Propofol (Diprivan 20 Ml) Confirm Administered Dose 200 mg .ROUTE .STK-MED ONE Stop: 08/31/19 19:52 Propofol (Diprivan 20 Ml) Confirm Administered Dose 200 mg .ROUTE .STK-MED ONE Stop: 09/02/19 13:45 Rocuronium [place] (Zemuron) Confirm Administered Dose 100 mg .ROUTE .STK-MED ONE Stop: 09/01/19 10:48 Rocuronium [place] (Zemuron) Confirm Administered Dose 100 mg .ROUTE .STK-MED ONE Stop: 09/02/19 13:45 Sugammadex Sodium (Bridion) Confirm Administered Dose 200 mg .ROUTE .STK-MED ONE Stop: 08/31/19 20:30 Sugammadex Sodium (Bridion) Confirm Administered Dose 200 mg .ROUTE .STK-MED ONE Stop: 09/01/19 10:49 Sugammadex Sodium (Bridion) Confirm Administered Dose 200 mg .ROUTE .STK-MED ONE Stop: 09/02/19 13:57 Vancomycin HCl (Vancomycin) Confirm Administered Dose 1 gm .ROUTE .STK-MED ONE Stop: 09/02/19 17:02 Vancomycin HCl (Vancomycin) Confirm Administered Dose 1 gm .ROUTE .STK-MED ONE Stop: 09/02/19 17:09 - Exam General: Alert, Oriented, Cooperative, Mild Distress HEENT: Pupils Equal, Pupils Reactive, EOMI Neck: Supple, Trachea Midline Lungs: Normal Respiratory Effort Peripheral Pulses: 2+: Dorsalis Pedis (L), Dorsalis Pedis (R) Skin: Warm, Dry, Intact, Rash Wound/Incisions: Healing Well, Dressing Dry and Intact Neurological: No New Focal Deficit Psy/Mental Status: Alert, Normal Affect, Normal Mood Sepsis Event Note - Evaluation Sepsis Screening Result: No Definite Risk - Focused Exam Vital Signs: Vital Signs Temp Pulse Resp BP Pulse Ox 09/04/19 03:10 36.5 C 96 18 133/58 L 96 09/04/19 00:15 36.8 C 96 17 128/59 L 98 09/03/19 22:37 36.9 C 98 16 123/58 L 95 Date Exam was Performed: 09/04/19 Time Exam was Performed: 08:53 - Problem List & Annotations (1) Hip dislocation, left SNOMED Code(s): 428820987 Code(s): S73.005A - UNSPECIFIED DISLOCATION OF LEFT HIP, INITIAL ENCOUNTER Status: Acute Current Visit: Yes Qualifiers: Encounter type: initial encounter Qualified Code(s): S73.005A - Unspecified dislocation of left hip, initial encounter - Problem List Review Problem List Initiated/Reviewed/Updated: Yes - My Orders Last 24 Hours: My Active Orders 09/03/19 09:00 Aspirin [Ecotrin] 325 mg PO DAILY 09/03/19 10:30 Clindamycin Phosphate in D5W [Cleocin in D5W] 300 mg Premix Bag 1 bag IV Q8H 09/03/19 11:54 Consult to Physical Therapy [PT Evaluation and Treatment] [CONS] Routine 09/03/19 11:55 Communication Order [RC] ROUTINE 09/03/19 11:57 Up ad Jazmine [RC] ASDIRECTED 09/03/19 Lunch Regular Diet [DIET] - Assessment Assessment:: 64 yo female POD 2 open left hip arthroplasty relocation P: PT/OT/Pain control/DVT prophylaxis f/u 3 wks for staple removal PT after DC
[2019-09-04] MEDS: Famotidine 20 MG Tab PO SCH (09:12)
[2019-09-04] MEDS: Aspirin 325 MG Tab.EC PO SCH (09:13)
[2019-09-05] MEDS: Clindamycin Phosphate in D5W 300 MG in Premix Bag 1 BAG IV SCH ×4 (02:31→09:34)
[2019-09-05] MEDS: Acetaminophen/oxyCODONE 325-10 MG Tab PO PRN (04:13)
[2019-09-05] MEDS: Aspirin 325 MG Tab.EC PO SCH (09:15)
[2019-09-05] MEDS: Famotidine 20 MG Tab PO SCH (09:15)
--- NOTE | 2019-09-05 15:31 | PCM.SURGPN ---
- General Info Date of Service: 09/05/19 (1300) Date of Surgery/Procedure: 09/02/19 POD#: 3 Post-Op Diagnosis: open Left total hip arthroplasty relocation Functional Status: Reports: Pain Controlled, Tolerating Diet (just ate lunch and has been eating meals without N/V), Ambulating (WBAT LLE with assistive device (walker), and would like to try ambulation with crutches this afternoon with PT before going home), Urinating - Review of Systems General: Reports: No Symptoms. Denies: Fever Pulmonary: Reports: No Symptoms Cardiovascular: Reports: No Symptoms Gastrointestinal: Denies: Nausea, Vomiting Psychiatric: Reports: No Symptoms - Patient Data Vitals - Most Recent: Last Vital Signs Temp 36.9 C 09/05/19 12:13 Pulse 105 H 09/05/19 12:13 Resp 16 09/05/19 12:13 BP 141/67 H 09/05/19 12:13 Pulse Ox 99 09/05/19 12:13 Weight - Most Recent: 68.039 kg I&O - Last 24 Hours: Intake & Output 09/05/19 09/05/19 09/05/19 06:59 14:59 22:59 Intake Total 850 920 Output Total 750 900 Balance 100 20 Med Orders - Current: Current Medications Acetaminophen (Tylenol) 650 mg PO Q6H PRN PRN Reason: Pain Last Admin: 09/04/19 23:15 Dose: 650 mg Aspirin (Ecotrin) 325 mg PO DAILY [facility] Last Admin: 09/05/19 09:15 Dose: 325 mg Diazepam (Valium) 2 mg IVPUSH Q4H PRN PRN Reason: Anxiety Last Admin: 09/02/19 14:03 Dose: 2 mg Famotidine (Pepcid) 40 mg PO DAILY [facility] Last Admin: 09/05/19 09:15 Dose: 40 mg Hydromorphone HCl (Dilaudid) 2 mg IVPUSH Q2H PRN PRN Reason: Pain Last Admin: 09/02/19 20:06 Dose: 2 mg Hydroxyzine Pamoate (Vistaril) 25 mg PO Q6H PRN PRN Reason: pain Clindamycin Phosphate 300 mg/ (Premix) 50 mls @ 96.154 mls/hr IV Q8H [facility] Last Admin: 09/05/19 09:34 Dose: 96.154 mls/hr Ondansetron HCl (Zofran) 4 mg IVPUSH Q4H PRN PRN Reason: Nausea/Vomiting Last Admin: 09/02/19 09:26 Dose: 4 mg Oxycodone/Acetaminophen (Percocet 325-10 Mg) 1 tab PO Q4H PRN PRN Reason: Pain Last Admin: 09/05/19 04:13 Dose: 1 tab Sodium Chloride (Saline Flush) 10 ml FLUSH ASDIRECTED PRN PRN Reason: Keep Vein Open Sodium Chloride (Saline Flush) 2.5 ml FLUSH ASDIRECTED PRN PRN Reason: Keep Vein Open Tramadol HCl (Ultram) 50 mg PO Q4H PRN PRN Reason: Pain Last Admin: 09/03/19 01:18 Dose: 50 mg Discontinued Medications Albuterol (Proventil Neb Soln) 2.5 mg NEB ONETIME PRN PRN Reason: Wheezing Atropine Sulfate (Atropine 0.1 Mg/Ml) 0.5 mg IVPUSH ASDIRECTED PRN PRN Reason: Hypo-perfusion Atropine Sulfate (Atropine 0.1 Mg/Ml) 1 mg IVPUSH ASDIRECTED PRN PRN Reason: Hypo-Perfusion Bupivacaine HCl/Epinephrine Bitart (Marcaine 0.5%/Epinephrine 1:200,000) Confirm Administered Dose 20 ml .ROUTE .STK-MED ONE Stop: 09/02/19 17:01 Dexamethasone (Dexamethasone) Confirm Administered Dose 20 mg .ROUTE .STK-MED ONE Stop: 09/02/19 17:26 Dextrose/Water (Dextrose 50% In Water) 50 ml IVPUSH ASDIRECTED PRN PRN Reason: Hypoglycemia Diazepam (Valium.) 5 mg PO ONETIME ONE Stop: 09/01/19 19:29 Last Admin: 09/01/19 19:54 Dose: 5 mg Epinephrine HCl (Epinephrine 1:10,000) 1 mg IVPUSH ASDIRECTED PRN PRN Reason: ACLS Guidelines Fentanyl (Sublimaze) Confirm Administered Dose 100 mcg .ROUTE .STK-MED ONE Stop: 08/31/19 19:06 Fentanyl (Sublimaze) Confirm Administered Dose 100 mcg .ROUTE .STK-MED ONE Stop: 08/31/19 19:53 Fentanyl (Sublimaze) Confirm Administered Dose 250 mcg .ROUTE .STK-MED ONE Stop: 09/02/19 13:46 Fentanyl (Sublimaze) 50 mcg IVPUSH Q5M PRN PRN Reason: Pain Hydromorphone HCl (Dilaudid) 1 mg IVPUSH ONETIME ONE Stop: 08/31/19 20:49 Last Admin: 08/31/19 21:00 Dose: 1 mg Hydromorphone HCl (Dilaudid) Confirm Administered Dose 2 mg .ROUTE .STK-MED ONE Stop: 08/31/19 20:49 Last Admin: 08/31/19 21:42 Dose: Not Given Hydromorphone HCl (Dilaudid) 1 mg IVPUSH ONETIME ONE Stop: 08/31/19 20:59 Last Admin: 08/31/19 20:49 Dose: 1 mg Hydromorphone HCl (Dilaudid) 1 mg IVPUSH ONETIME ONE Stop: 09/01/19 19:28 Last Admin: 09/01/19 19:54 Dose: 1 mg Acetaminophen (Ofirmev) Confirm Administered Dose 100 mls @ as directed .ROUTE .STK-MED ONE Stop: 08/31/19 19:07 Lactated Ringer's (Ringers, Lactated) 1,000 mls @ 100 mls/hr IV ASDIRECTED DEEP Last Admin: 09/03/19 01:18 Dose: 100 mls/hr Clindamycin Phosphate 900 mg/ (Premix) 50 mls @ 100 mls/hr IV ONCALL DEEP Clindamycin Phosphate 900 mg/ (Premix) 50 mls @ 100 mls/hr IV ONCALL DEEP Acetaminophen (Ofirmev) Confirm Administered Dose 100 mls @ as directed .ROUTE .STK-MED ONE Stop: 09/02/19 13:57 Clindamycin Phosphate 300 mg/ (Sodium Chloride) 52 mls @ 100 mls/hr IV Q8H [facility] Last Admin: 09/03/19 10:22 Dose: Not Given Ketorolac Tromethamine (Toradol) 15 mg IVPUSH Q6H PRN PRN Reason: Pain Stop: 09/01/19 05:00 Lidocaine (Xylocaine-Mpf 2%) Confirm Administered Dose 5 ml .ROUTE .STK-MED ONE Stop: 09/02/19 13:45 Meperidine HCl (Demerol) 25 mg IVPUSH ONETIME ONE Stop: 09/02/19 18:56 Last Admin: 09/02/19 19:06 Dose: 25 mg Midazolam HCl (Versed 1 Mg/Ml) Confirm Administered Dose 2 mg .ROUTE .STK-MED ONE Stop: 08/31/19 19:06 Midazolam HCl (Versed 1 Mg/Ml) Confirm Administered Dose 2 mg .ROUTE .STK-MED ONE Stop: 09/02/19 13:45 Naloxone HCl (Narcan) 0.1 mg IVPUSH ASDIRECTED PRN PRN Reason: Respiratory Depression Ondansetron HCl (Zofran) Confirm Administered Dose 4 mg .ROUTE .STK-MED ONE Stop: 08/31/19 19:06 Ondansetron HCl (Zofran) Confirm Administered Dose 4 mg .ROUTE .STK-MED ONE Stop: 09/02/19 17:26 Phenylephrine HCl (Phenylephrine In Ns 100 Mcg/Ml) Confirm Administered Dose 1 mg .ROUTE .STK-MED ONE Stop: 09/02/19 16:49 Propofol (Diprivan 20 Ml) Confirm Administered Dose 400 mg .ROUTE .STK-MED ONE Stop: 08/31/19 19:06 Propofol (Diprivan 20 Ml) Confirm Administered Dose 200 mg .ROUTE .STK-MED ONE Stop: 08/31/19 19:52 Propofol (Diprivan 20 Ml) Confirm Administered Dose 200 mg .ROUTE .STK-MED ONE Stop: 09/02/19 13:45 Rocuronium [place] (Zemuron) Confirm Administered Dose 100 mg .ROUTE .STK-MED ONE Stop: 09/01/19 10:48 Rocuronium [place] (Zemuron) Confirm Administered Dose 100 mg .ROUTE .STK-MED ONE Stop: 09/02/19 13:45 Sugammadex Sodium (Bridion) Confirm Administered Dose 200 mg .ROUTE .STK-MED ONE Stop: 08/31/19 20:30 Sugammadex Sodium (Bridion) Confirm Administered Dose 200 mg .ROUTE .STK-MED ONE Stop: 09/01/19 10:49 Sugammadex Sodium (Bridion) Confirm Administered Dose 200 mg .ROUTE .STK-MED ONE Stop: 09/02/19 13:57 Vancomycin HCl (Vancomycin) Confirm Administered Dose 1 gm .ROUTE .STK-MED ONE Stop: 09/02/19 17:02 Vancomycin HCl (Vancomycin) Confirm Administered Dose 1 gm .ROUTE .STK-MED ONE Stop: 09/02/19 17:09 - Exam Wound/Incisions: Dressing Dry and Intact (AquaCell intact to left hip, which was changed 09/03/2019 by myself) Quality Assessment: DVT Prophylaxis (ASA) General: Alert, Oriented, Cooperative, No Acute Distress HEENT: Pupils Equal Lungs: Normal Respiratory Effort Cardiovascular: Regular Rate Extremities: Normal Inspection (no pitting edema LLE. PP2+ Sensation grossly intact LLE. Knee imobilizer on) Skin: Warm, Dry Neurological: Normal Speech, Normal Tone Psy/Mental Status: Alert, Normal Affect Sepsis Event Note - Evaluation Sepsis Screening Result: No Definite Risk - Focused Exam Vital Signs: Vital Signs Temp Pulse Resp BP Pulse Ox 09/05/19 12:13 36.9 C 105 H 16 141/67 H 99 09/05/19 09:00 36.3 C 108 H 17 124/66 96 09/05/19 04:00 36.2 C 87 16 137/67 96 Date Exam was Performed: 09/05/19 Time Exam was Performed: 15:26 - Problem List Review Problem List Initiated/Reviewed/Updated: Yes - My Orders Last 24 Hours: Active Orders 24 hr Category Date Time Status Ready for Discharge [RC] PER UNIT ROUTINE Care 09/05/19 13:24 Active Medication Orders Acetaminophen (Tylenol) 650 mg PO Q6H PRN PRN Reason: Pain Last Admin: 09/04/19 23:15 Dose: 650 mg Admin: 09/04/19 03:56 Dose: 650 mg Aspirin (Ecotrin) 325 mg PO DAILY [facility] Last Admin: 09/05/19 09:15 Dose: 325 mg Admin: 09/04/19 09:13 Dose: 325 mg Admin: 09/03/19 08:43 Dose: 325 mg Diazepam (Valium) 2 mg IVPUSH Q4H PRN PRN Reason: Anxiety Last Admin: 09/02/19 14:03 Dose: 2 mg Admin: 09/02/19 09:25 Dose: 2 mg Famotidine (Pepcid) 40 mg PO DAILY [facility] Last Admin: 09/05/19 09:15 Dose: 40 mg Admin: 09/04/19 09:12 Dose: 40 mg Admin: 09/03/19 08:43 Dose: 40 mg Admin: 09/02/19 09:38 Dose: Admin: 09/01/19 08:11 Dose: 40 mg Admin: 08/31/19 21:50 Dose: 40 mg Hydromorphone HCl (Dilaudid) 2 mg IVPUSH Q2H PRN PRN Reason: Pain Last Admin: 09/02/19 20:06 Dose: 2 mg Hydroxyzine Pamoate (Vistaril) 25 mg PO Q6H PRN PRN Reason: pain Clindamycin Phosphate 300 mg/ (Premix) 50 mls @ 96.154 mls/hr IV Q8H DEEP Last Admin: 09/05/19 09:34 Dose: 96.154 mls/hr Infusion: 09/05/19 03:03 Dose: 96.154 mls/hr Admin: 09/05/19 02:31 Dose: 96.154 mls/hr Infusion: 09/04/19 19:02 Dose: 96.154 mls/hr Admin: 09/04/19 18:30 Dose: 96.154 mls/hr Infusion: 09/04/19 11:06 Dose: 96.154 mls/hr Admin: 09/04/19 10:34 Dose: 96.154 mls/hr Infusion: 09/04/19 03:46 Dose: 96.154 mls/hr Admin: 09/04/19 03:14 Dose: 96.154 mls/hr Infusion: 09/03/19 19:47 Dose: 96.154 mls/hr Admin: 09/03/19 19:15 Dose: 96.154 mls/hr Infusion: 09/03/19 11:01 Dose: 96.154 mls/hr Admin: 09/03/19 10:29 Dose: 96.154 mls/hr Ondansetron HCl (Zofran) 4 mg IVPUSH Q4H PRN PRN Reason: Nausea/Vomiting Last Admin: 09/02/19 09:26 Dose: 4 mg Admin: 09/01/19 18:08 Dose: 4 mg Admin: 09/01/19 08:11 Dose: 4 mg Admin: 08/31/19 23:06 Dose: 4 mg Oxycodone/Acetaminophen (Percocet 325-10 Mg) 1 tab PO Q4H PRN PRN Reason: Pain Last Admin: 09/05/19 04:13 Dose: 1 tab Admin: 09/03/19 19:15 Dose: 1 tab Admin: 09/03/19 12:39 Dose: 1 tab Admin: 09/02/19 20:07 Dose: 1 tab Sodium Chloride (Saline Flush) 10 ml FLUSH ASDIRECTED PRN PRN Reason: Keep Vein Open Sodium Chloride (Saline Flush) 2.5 ml FLUSH ASDIRECTED PRN PRN Reason: Keep Vein Open Tramadol HCl (Ultram) 50 mg PO Q4H PRN PRN Reason: Pain Last Admin: 09/03/19 01:18 Dose: 50 mg Admin: 09/02/19 04:18 Dose: 50 mg Admin: 09/02/19 00:05 Dose: 50 mg Admin: 09/01/19 18:08 Dose: 50 mg - Assessment Assessment (Free Text/Narrative):: s/p open left total hip arthroplasty relocation - Plan Plan (Free Text/Narrative):: Overall, she is doing well, and voices she is ready to be discharged. Tolerating food/fluids. Voiding. No N/V. Pain controlled. Ambulating with assistive device, and would like to try crutches with PT this afternoon before discharge home, feeling she would do better at home with crutches than a walker. Dressing intact. Discussed to leave dressing on/intact for an additional 5 days, then remove and replace with clean bandage. Follow up appt has been scheduled for suture removal at orthopedic clinic. I agree that she is ready for discharge home with her . She had no additional questions, other than a request for an antifungal Rx for suspected yeast infection, stating she is prone to them when she receives antibiotics. She had been previously educated on the need to wear straight leg knee immobilizer at all times for the next 6 weeks. Discharge home after PT trial/education with crutches. Rx sent to [facility] for diflucan. Rx written for walker (pending which assistive device she deems she will use).
--- NOTE | 2019-09-05 22:01 | DISCH ---
DATE OF DISCHARGE: 09/05/2019 PRIMARY CARE PHYSICIAN: Carlos Piña MD ADMITTING DIAGNOSIS: Left hip arthroplasty posterior dislocation. OPERATIVE PROCEDURES: 1. Attempted closed reduction, left hip arthroplasty, unable to relocate. 2. Open left total hip arthroplasty, relocation. OTHER MEDICAL DIAGNOSIS: Anxiety. DISCHARGE MEDICAL DIAGNOSES: 1. Status post open left total hip arthroplasty relocation. 2. Anxiety. HISTORY: This is a 64-year-old female who turned when in her garage and felt her left hip gave out. She then fell and was unable to bear weight on left lower extremity. Presented to the ED. Dr. Vahid Tanner attempted closed reduction, but was unable to relocate. She was admitted to Med/Surg for pain management and scheduled for surgery. She underwent open left total hip arthroplasty relocation 09/02/[address] Vahid Tanner. No known surgical complications. She returned to the Med/Surg floor for postop care and physical therapy and pain management. HOSPITAL COURSE: Postoperatively, she did well. Vital signs stable/afebrile. No nausea and vomiting. Pain was controlled with oral medications. Diligent use of ice therapy to left hip to minimize swelling and pain. Voiding well after [place] removed. Postop day 1, surgical dressings were removed. Incision assessed to be clean, dry, and intact. [place] intact. Aquacel dressing was applied. Antibiotic coverage included clindamycin 900 mg prior to surgery followed by clindamycin 300 mg IV q.8 hours. DVT prophylaxis: ASA 325 mg, SCDs, early ambulation. PT was initiated in the hospital. Ambulating well with walker. Day of discharge, she inquired about education on use of the crutches versus the walker. She felt ready to be discharged home with her on 09/05/2019. DISCHARGE MEDICATIONS: 1. Percocet 10/325 mg 1 tab p.o. q.6 hours p.r.n. 2. Aspirin 325 mg daily. 3. Diflucan 150 mg 1 tablet today and then repeat in 2 days. DISCHARGE ORDERS: [facility]. Continue physical therapy at outpatient facility after discharge. Prescription written for a walker in the event crutch use is not successful. She was instructed on when to change Aquacel dressing and apply with new bandage. She was also stressed to wear straight leg knee immobilizer on at all times for the next 6 weeks. If she has additional questions, she was directed to contact orthopedic clinic prior to her appointment. [place] / CATHY /[id number]
== END 2019-09-05 15:52 | disposition home or self-care (01) | DRG 301 ==
LOC: MW.ED 16:47 → MW.SDS 19:42 → MW.MS 20:57
PROVIDERS: ADMIT Orthopaedic Surgery; ATTEND Orthopaedic Surgery
PROC: 0SWB0JZ Revision of Synthetic Substitute in Left Hip Joint, Open Approach (ICD-10-PCS; principal; 2019-09-02)
DX: T84.021A Dislocation of internal left hip prosthesis, initial encounter (principal); Z88.1 Allergy status to other antibiotic agents
CPT/HCPCS: 01200; 36415; 71045; 71045-26; 73501-26-LT; 73501-LT; 73502-26-LT; 73502-LT; 80048; 85014; 85018; 86850; 86900; 86901; 96374; 97110-GP; 97161-GP; 99283; 99285-25; A9270-GY; J0131; J1100; J1170; J2001; J2175; J2250; J2370; J2405; J2704; J3010; J3360; J3370; J3490; J7050; J7120

== ENCOUNTER 2020-06-10 07:58 | Day surgery (SDC) | payer BC ==
[~2020-06-10 07:58] MED LIST: Lactated Ringers 1,000 ML IV SCH; Sodium Chloride 0.9% 10 ML SDV IV PRN; Sodium Chloride 0.9% 10 ML Syringe FLUSH PRN; Sodium Chloride 0.9% 2.5 ML Syringe FLUSH PRN
[2020-06-10] MEDS ORDERED: fentaNYL 100 MCG/2 ML SDV ONE (08:32)
[2020-06-10] MEDS ORDERED: Clindamycin Phosphate in D5W 600 MG in Premix Bag 1 BAG IV ONE ×2 (08:40)
--- NOTE | 2020-06-10 08:47 | PCM.PREANE ---
Preanesthetic Assessment - Anesthesia/Transfusion/Family Hx Anesthesia History: Prior Anesthesia Without Reaction Family History of Anesthesia Reaction: No Transfusion History: No Prior Transfusion(s) Intubation History: Intubation other than for Surgery in past - Review of Systems General: No Symptoms Pulmonary: No Symptoms Cardiovascular: No Symptoms Gastrointestinal: No Symptoms Neurological: No Symptoms Other: Reports: None - Physical Assessment NPO Status Date: 06/09/20 Vital Signs: Last Vital Signs Temp Pulse 101 H 06/10/20 08:07 Resp 16 06/10/20 08:07 BP 141/66 H 06/10/20 08:07 Pulse Ox 97 06/10/20 08:07 Height: 5 ft 7 in Weight: 58.967 kg ASA Class: 2 Airway Class: Mallampati = 2 Dentition: Reports: Normal Dentition ROM/Head Extension: Full Lungs: Clear to Auscultation, Normal Respiratory Effort Cardiovascular: Regular Rate, Regular Rhythm - Allergies Allergies/Adverse Reactions: Allergies Allergy/AdvReac Type Severity Reaction Status Date / Time cefdinir Allergy Hives Verified 06/04/20 14:17 Cephalosporins Allergy Hives Verified 06/04/20 14:15 - Blood Blood Available: No - Anesthesia Plan Pre-Op Medication Ordered: None - Acknowledgements Anesthesia Type Planned: General Anesthesia (tiva) Pt an Appropriate Candidate for the Planned Anesthesia: Yes Alternatives and Risks of Anesthesia Discussed w Pt/Guardian: Yes Pt/Guardian Understands and Agrees with Anesthesia Plan: Yes PreAnesthesia Questionnaire Cardiovascular History: Reports: None Respiratory History: Reports: None Gastrointestinal History: Reports: None Genitourinary History: Reports: None Musculoskeletal History: Neurological History: Reports: None Psychiatric History: Reports: None Endocrine/Metabolic History: Reports: None Hematologic History: Reports: None Immunologic History: Reports: None Oncologic (Cancer) History: Reports: None Dermatologic History: Reports: None - Infectious Disease History Infectious Disease History: Reports: Chicken Pox, Measles, Mumps Other Infectious Disease History: when a child - Past Surgical History HEENT Surgical History: Reports: GAEL Cardiovascular Surgical History: Reports: None Respiratory Surgical History: Reports: None GI Surgical History: Reports: None Female Surgical History: Reports: None Endocrine Surgical History: Reports: None Musculoskeletal Surgical History: Reports: Hip Replacement Other Musculoskeletal Surgeries/Procedures:: Left Hip Replacement x 3, right hip replacement x 1 Oncologic Surgical History: Reports: None Dermatological Surgical History: Reports: None - SUBSTANCE USE Tobacco Use Status *Q: Former Tobacco User - HOME MEDS Home Medications: Home Meds Ascorbic Acid [Vitamin C] 1 tab PO DAILY 06/04/20 [History] Calcium Phosphate Trib/Vit D3 [Calcium Adult Gummies] 1 tab PO DAILY 06/04/20 [History] Cholecalciferol (Vitamin D3) [Vitamin D3] 1 tab PO DAILY 06/04/20 [History] Cyanocobalamin (Vitamin B12) [Vitamin B12] 1 tab PO DAILY 06/04/20 [History] Multivitamin 1 tab PO DAILY 06/04/20 [History] - CURRENT (IN HOUSE) MEDS Current Meds: Current Medications Lactated Ringer's (Ringers, Lactated) 1,000 mls @ 125 mls/hr IV ASDIRECTED DEEP Last Admin: 06/10/20 08:20 Dose: 125 mls/hr Documented by: Clindamycin Phosphate 600 mg/ (Premix) 50 mls @ 100 mls/hr IV ONETIME ONE Stop: 06/10/20 09:09 Sodium Chloride (Saline Flush) 10 ml FLUSH ASDIRECTED PRN PRN Reason: Keep Vein Open Sodium Chloride (Saline Flush) 2.5 ml FLUSH ASDIRECTED PRN PRN Reason: Keep Vein Open Sodium Chloride (Saline Flush) 10 ml FLUSH ASDIRECTED PRN PRN Reason: Keep Vein Open Sodium Chloride (Saline Flush) 2.5 ml FLUSH ASDIRECTED PRN PRN Reason: Keep Vein Open Sodium Chloride (Normal Saline) 10 ml IV ASDIRECTED PRN PRN Reason: IV Use Discontinued Medications Fentanyl (Sublimaze) Confirm Administered Dose 100 mcg .ROUTE .STK-MED ONE Stop: 06/10/20 08:33
[2020-06-10] MEDS ORDERED: Propofol 200 MG/20 ML SDV ONE ×2 (09:13→09:50)
[2020-06-10] MEDS ORDERED: Midazolam 1 MG/ML 2 ML SDV ONE (09:15)
[2020-06-10] MEDS ORDERED: Lidocaine 2% 5 ML SDV ONE (09:16)
--- NOTE | 2020-06-10 10:02 | PCM.OPNOTE ---
- General Post-Op/Procedure Note Date of Surgery/Procedure: 06/10/20 Operative Procedure(s): Diagnostic colonoscopy Findings: Transverse colon polyp, sigmoid colon polyp x 2 Pre Op Diagnosis: Positive cologuard Post-Op Diagnosis: Transverse colon polyp, sigmoid colon polyp x 2 Anesthesia Technique: MAC Primary Surgeon: Liliya Lock Condition: Good
--- NOTE | 2020-06-10 10:25 | PCM48HPAN ---
Post Anesthesia Note - EVALUATION WITHIN 48HRS OF ANESTHETIC Vital Signs in Normal Range: Yes Patient Participated in Evaluation: Yes Respiratory Function Stable: Yes Airway Patent: Yes Cardiovascular Function Stable: Yes Hydration Status Stable: Yes Pain Control Satisfactory: Yes Nausea and Vomiting Control Satisfactory: Yes Mental Status Recovered: Yes Vital Signs: Last Vital Signs Temp 97.5 F 06/10/20 10:01 Pulse 86 06/10/20 10:16 Resp 15 06/10/20 10:16 BP 109/67 06/10/20 10:16 Pulse Ox 96 06/10/20 10:16
--- NOTE | 2020-06-10 10:25 | PCM.POSTAN ---
POST ANESTHESIA ASSESSMENT - MENTAL STATUS Mental Status: Alert, Oriented - VITAL SIGNS Vital Signs: Last Vital Signs Temp 97.5 F 06/10/20 10:01 Pulse 86 06/10/20 10:16 Resp 15 06/10/20 10:16 BP 109/67 06/10/20 10:16 Pulse Ox 96 06/10/20 10:16 - RESPIRATORY Respiratory Status: Respiratory Rate WNL, Airway Patent, O2 Saturation Stable - CARDIOVASCULAR CV Status: Pulse Rate WNL, Blood Pressure Stable - GASTROINTESTINAL GI Status: No Symptoms - POST OP HYDRATION Hydration Status: Adequate & Stable
--- NOTE | 2020-06-11 13:13 | OR ---
SURGEON: LILIYA LOCK MD DATE OF PROCEDURE: 06/10/2020 PREOPERATIVE DIAGNOSIS: Positive Cologuard test. POSTOPERATIVE DIAGNOSES: 1. Transverse colon polyp. 2. Sigmoid colon polyp x2. PROCEDURE PERFORMED: Diagnostic colonoscopy with polypectomy. PRIMARY SURGEON: Liliya Lock MD ANESTHESIA: MAC. INSTRUMENT USED: Olympus colonoscope. EXTENT OF EXAM: To the cecum. PREPARATION: Good. LIMITATIONS: None. INDICATIONS FOR EXAMINATION: The patient is a 65-year-old female who recently underwent a Cologuard test. This came back positive. She has never had a colonoscopy. The patient and I discussed the need for the procedure as well as the expected perioperative course and risks. She verbalized understanding and wishes to proceed. PROCEDURE IN DETAIL: The patient was brought to the endoscopy suite and placed in the left lateral decubitus position. A time-out was completed verifying the patient's name, age, date of , allergies, and procedure to be performed. Monitored anesthesia care was induced and continuous oxygen was provided via nasal cannula throughout the procedure. After adequate sedation was achieved, a digital rectal exam was performed. This exam was within normal limits. A well-lubricated colonoscope was inserted in the rectum and advanced under direct visualization to the level of the cecum. The cecum was identified by both visual and anatomic landmarks. A photograph was taken of the cecal cap as well as with the scope retroflexed within the cecum. The scope was then fully withdrawn while examining the color, texture, anatomy, and integrity of the mucosa from the cecum to the anal canal. The patient was found to have a sessile polyp within the transverse colon and 2 sessile polyps within the sigmoid colon. All 3 were removed in piecemeal fashion using a cold biopsy forceps. The scope was then brought into the rectum and retroflexed to allow visualization of the anal canal opening. This appeared normal and a photograph was taken. The scope was then straightened out and fully withdrawn. The cecum to anus time was greater than 6 minutes. The patient tolerated the procedure well and was transferred to the PACU in stable condition. ENDOSCOPIC DIAGNOSES: 1. Transverse colon polyp. 2. Sigmoid colon polyp x2. RECOMMENDATIONS: Follow up in clinic in 2 weeks. ROSINA / CATHY /[id number]
== END 2020-06-10 10:45 | disposition home or self-care (01) ==
LOC: MW.SDS 07:58
PROVIDERS: ATTEND Surgery
DX: K63.5 Polyp of colon (principal); Z88.8 Allergy status to other drugs, medicaments and biological substances; Z79.899 Other long term (current) drug therapy; Z98.890 Other specified postprocedural states; Z87.891 Personal history of nicotine dependence
CPT/HCPCS: 45380; J2001; J2250; J2704; J3010; J3490; J7120